=== PATIENT | female | born 2000 | race Caucasian/White ===

== ENCOUNTER 2022-07-20 19:27 | Emergency (ER) | payer OTHER ==
[~2022-07-20] VITALS: Ht 167.6 cm; Wt 57.7 kg
[2022-07-20] MEDS ORDERED: AZAT50TA37 PO (19:35)
[2022-07-20 21:04] LABS: HEMATOCRIT 37.2 % (36.0-47.0); HEMOGLOBIN 12.2 g/dl (12.0-15.5); MEAN CORPUSCULAR HEMOGLOBIN 28.5 pg (27.0-33.0); MEAN CORPUSCULAR HGB CONC 32.8 g/dl (32.0-36.5); MEAN CORPUSCULAR VOLUME 86.9 fl (80.0-96.0); PLATELET COUNT, AUTOMATED 230 10^3/uL (150-450); RED BLOOD COUNT 4.28 10^6/uL (4.00-5.40)
[2022-07-20] MEDS ORDERED: CEFDINIR 300 MG CAP (OMNICEF) PO ONE (21:30)
[2022-07-20 21:35] LABS: ALBUMIN 3.4 GM/DL (3.2-5.2); ALT/SGPT 20 U/L (12-78); BILIRUBIN,DIRECT 0.1 MG/DL (0.0-0.2); BILIRUBIN,TOTAL 0.2 MG/DL (0.2-1.0); BLOOD UREA NITROGEN 10 MG/DL (7-18); CALCIUM LEVEL 8.9 MG/DL (8.5-10.1); CARBON DIOXIDE LEVEL 28 MEQ/L (21-32); CHLORIDE LEVEL 107 MEQ/L (98-107); CREATININE FOR GFR 0.73 MG/DL (0.55-1.30); GLOMERULAR FILTRATION RATE > 60.0 (>60); GLUCOSE, FASTING 95 MG/DL (70-100); LIPASE 174 U/L (73-393); POTASSIUM SERUM 3.6 MEQ/L (3.5-5.1); SODIUM LEVEL 139 MEQ/L (136-145); TOTAL PROTEIN 7.3 GM/DL (6.4-8.2)
[2022-07-20] MEDS ORDERED: CEFD300C41 PO (22:10)
[2022-07-20 22:16] VITALS: BP 125/64
== END 2022-07-20 22:23 | disposition home or self-care (01) ==
LOC: M ED 19:27
DX: N39.0 Urinary tract infection, site not specified (principal); Z79.899 Other long term (current) drug therapy

== ENCOUNTER 2022-07-29 23:21 | Emergency (ER) | payer OTHER ==
[~2022-07-29] VITALS: Ht 167.6 cm; Wt 57.7 kg
[~2022-07-29 23:21] MED LIST: AZAT50TA37 PO; CEFD300C41 PO
[2022-07-29] MEDS ORDERED: ACET-841 PO (23:35)
[2022-07-30 00:47] LABS: BASO # 0.1 10^3/uL (0.0-0.2); BASO % 0.8 % (0.0-1.0); EOS # 0.2 10^3/uL (0.0-0.5); EOS % 2.1 % (0.0-3.0); HEMATOCRIT 35.8 % (36.0-47.0); HEMOGLOBIN 11.5 g/dl (12.0-15.5); LYMPH % 30.8 % (24.0-44.0); MEAN CORPUSCULAR HGB CONC 32.1 g/dl (32.0-36.5); MEAN CORPUSCULAR VOLUME 87.1 fl (80.0-96.0); MONO # 1.2 10^3/uL (0.0-0.8); MONO % 12.4 % (2.0-8.0); NEUTROPHILS # 5.1 10^3/uL (1.5-8.5); NEUTROPHILS % 53.5 % (36.0-66.0); PLATELET COUNT, AUTOMATED 314 10^3/uL (150-450); RED BLOOD COUNT 4.11 10^6/uL (4.00-5.40); WHITE BLOOD COUNT 9.6 10^3/uL (4.0-10.0)
[2022-07-30 02:09] LABS: HCG, SERUM QUALITATIVE NEGATIVE (NEGATIVE)
[2022-07-30 02:13] LABS: ALBUMIN 3.3 GM/DL (3.2-5.2); ALT/SGPT 24 U/L (12-78); BILIRUBIN,DIRECT < 0.1 MG/DL (0.0-0.2); BILIRUBIN,TOTAL 0.3 MG/DL (0.2-1.0); BLOOD UREA NITROGEN 6 MG/DL (7-18); CALCIUM LEVEL 8.7 MG/DL (8.5-10.1); CARBON DIOXIDE LEVEL 27 MEQ/L (21-32); CHLORIDE LEVEL 108 MEQ/L (98-107); CREATININE FOR GFR 0.62 MG/DL (0.55-1.30); GLOMERULAR FILTRATION RATE > 60.0 (>60); GLUCOSE, FASTING 91 MG/DL (70-100); LIPASE 189 U/L (73-393); POTASSIUM SERUM 4.1 MEQ/L (3.5-5.1); SODIUM LEVEL 139 MEQ/L (136-145); TOTAL PROTEIN 7.2 GM/DL (6.4-8.2)
[2022-07-30] MEDS ORDERED: BUDE3CAP PO (03:14)
[2022-07-30] MEDS ORDERED: methylPREDNISolone 125MG 2ML VIAL IV ONE (03:15)
[2022-07-30 03:29] VITALS: BP 112/66
== END 2022-07-30 03:27 | disposition home or self-care (01) ==
LOC: M ED 23:21
DX: K50.919 Crohn's disease, unspecified, with unspecified complications (principal); Z79.52 Long term (current) use of systemic steroids; Z79.82 Long term (current) use of aspirin
CPT/HCPCS: 80048; 80076; 81002; 83690; 84703; 85025; 87486; 87581; 87633; 87798; 96374; 99283; J2930

== ENCOUNTER 2022-11-11 19:20 | Emergency (ER) | payer OTHER ==
[~2022-11-11] VITALS: Ht 167.6 cm; Wt 54.1 kg
[~2022-11-11 19:20] MED LIST changes: +ACET-841 PO; +BUDE3CAP PO
[2022-11-11 23:21] VITALS: BP 102/65
== END 2022-11-11 23:46 | disposition left against medical advice (07) ==
LOC: M ED 19:20
DX: Z53.21 Procedure and treatment not carried out due to patient leaving prior to being seen by health care provider (principal)

== ENCOUNTER 2022-11-16 01:57 | Inpatient (IN) | payer OTHER ==
[~2022-11-16] VITALS: Ht 167.6 cm; Wt 54.1 kg
[2022-11-16] MEDS ORDERED: NS 1,620 ML in IV 1 EA IV ONE (02:15)
[2022-11-16] MEDS ORDERED: ACETAMINOPHEN 650MG SUPP PR ONE (02:20)
[2022-11-16] MEDS ORDERED: ONDANSETRON 4MG 2ML VIAL IV ONE (02:50)
[2022-11-16 03:16] LABS: BASO % 0.2 % (0.0-1.0); EOS % 0.1 % (0.0-3.0); HEMATOCRIT 36.5 % (36.0-47.0); HEMOGLOBIN 11.8 g/dl (12.0-15.5); LYMPH # 1.3 10^3/uL (1.5-5.0); MEAN CORPUSCULAR HEMOGLOBIN 27.4 pg (27.0-33.0); MEAN CORPUSCULAR HGB CONC 32.3 g/dl (32.0-36.5); MEAN CORPUSCULAR VOLUME 84.9 fl (80.0-96.0); MONO % 12.8 % (2.0-8.0); NEUTROPHILS # 12.6 10^3/uL (1.5-8.5); NEUTROPHILS % 78.3 % (36.0-66.0); PLATELET COUNT, AUTOMATED 184 10^3/uL (150-450); WHITE BLOOD COUNT 16.1 10^3/uL (4.0-10.0)
[2022-11-16 03:18] LABS: LIPASE 37 U/L (12-53)
[2022-11-16 03:20] LABS: ALBUMIN 3.1 G/DL (3.2-5.2); ALKALINE PHOSPHATASE 86 U/L (46-116); ALT/SGPT 16 U/L (7.0-40); AST/SGOT 22 U/L (<34); BILIRUBIN,TOTAL 0.5 MG/DL (0.3-1.2); BLOOD UREA NITROGEN 7 MG/DL (9-23); CALCIUM LEVEL 7.7 MG/DL (8.5-10.1); CARBON DIOXIDE LEVEL 24 MMOL/L (20-31); CHLORIDE LEVEL 105 MMOL/L (98-107); CK-MB VALUE MASS < 1.0 NG/ML (<3.6); GLOMERULAR FILTRATION RATE > 60.0 (>60); GLUCOSE, FASTING 96 MG/DL (60-100); MAGNESIUM LEVEL 1.7 MG/DL (1.8-2.4); POTASSIUM SERUM 3.2 MMOL/L (3.5-5.1); SODIUM LEVEL 138 MMOL/L (136-145); TOTAL PROTEIN 6.6 G/DL (5.7-8.2)
[2022-11-16 03:22] LABS: THYROID STIMULATING HORMONE 1.356 uIU/ML (0.55-4.78)
[2022-11-16 03:39] LABS: CPK CREATINE PHOSPHOKINASE 32 U/L (34-145); MB/CK RELATIVE INDEX 3.12 (< OR =4)
[2022-11-16 03:40] LABS: MONO # 2.1 10^3/uL (0.0-0.8)
[2022-11-16 03:45] LABS: HCG, SERUM QUALITATIVE NEGATIVE (NEGATIVE)
[2022-11-16] MEDS ORDERED: METOCLOPRAMIDE INJ 10MG/2ML VIAL IV ONE (04:40)
[2022-11-16] MEDS ORDERED: POTASSIUM CHLORIDE 10MEQ SR TABLET PO ONE (04:45)
[2022-11-16] MEDS ORDERED: MAG SULF 1GM/100ML (MAG RUN) 1 GM in IV 1 EA IV ONE ×2 (04:45→06:00)
[2022-11-16] MEDS ORDERED: NS 1,000 ML IV SCH (04:55)
[2022-11-16] MEDS: ACETAMINOPHEN TAB 650MG DOSE (2X325MG) PO PRN ×3 (05:50→19:28)
[2022-11-16] MEDS ORDERED: BUDE3CAP PO (05:51)
[2022-11-16] MEDS ORDERED: CLAR10TA7 PO (05:53)
[2022-11-16] MEDS ORDERED: HOME MED LIST COMPLETE! XX SCH (05:55)
[2022-11-16 06:02] LABS: AMPHETAMINES LEVEL URINE NEGATIVE (NEGATIVE); APPEARANCE, URINE MANUAL CLEAR (CLEAR); BARBITURATES URINE NEGATIVE (NEGATIVE); BENZODIAZEPINES URINE NEGATIVE (NEGATIVE); CANNABINOIDS URINE NEGATIVE (NEGATIVE); COCAINE METABOLITE URINE NEGATIVE (NEGATIVE); COLOR, URINE MANUAL YELLOW (YELLOW); METHADONE URINE NEGATIVE (NEGATIVE); OPIATES URINE NEGATIVE (NEGATIVE); PHENCYCLIDINE URINE NEGATIVE (NEGATIVE)
[2022-11-16 06:04] LABS: BILIRUBIN, URINE MANUAL NEGATIVE (NEGATIVE); BLOOD URINE MANUAL NEGATIVE (NEGATIVE); GLUCOSE, URINE (UA) MANUAL NEGATIVE (NEGATIVE); KETONE, URINE MANUAL 1+ mg/dL (NEGATIVE); LEUKOCYTE ESTERASE, URINE MAN NEGATIVE (NEGATIVE); NITRITE, URINE MANUAL NEGATIVE (NEGATIVE); PROTEIN, URINE MANUAL NEGATIVE (NEGATIVE); UROBILINOGEN, URINE MANUAL NORMAL (NORMAL)
[2022-11-16] MEDS ORDERED: ONDANSETRON 4MG 2ML VIAL IV PRN (06:05)
[2022-11-16] MEDS ORDERED: KETOROLAC 30 MG/ML 1ML VIAL IV ONE (07:00)
[2022-11-16] MEDS: cefTRIAXone SOD 1 GM in D5W MINI-BAG PLUS 50 ML IV SCH (07:35)
[2022-11-16 09:15] VITALS: BP 94/54
[2022-11-16 14:00] VITALS: BP 89/58
[2022-11-16 16:04] VITALS: BP 92/54
[2022-11-16 20:03] VITALS: BP 98/59
[2022-11-16] MEDS ORDERED: NS 1,000 ML IV ONE (20:15)
[2022-11-16] MEDS ORDERED: CEPACOL LOZENGE PO PRN (20:15)
[2022-11-16] MEDS ORDERED: KETOROLAC 30 MG/ML 1ML VIAL IV PRN (21:15)
[2022-11-16 21:33] VITALS: BP 97/63
[2022-11-16] MEDS: guaiFENesin SYRUP 200MG 10ML UDC PO PRN (21:46)
[2022-11-16] MEDS: FLUTICASONE PROP 0.05% NASAL SPRAY 16 GM (FLONASE) NARES SCH (22:09)
[2022-11-17] MEDS: cefTRIAXone SOD 1 GM in D5W MINI-BAG PLUS 50 ML IV SCH (05:02)
[2022-11-17 06:12] VITALS: BP 97/56
[2022-11-17 06:22] VITALS: BP_SYST 93; BP_SYST 96; BP_SYST 97; BP_DIAS 56; BP_DIAS 62
[2022-11-17] MEDS ORDERED: SODIUM CHLORIDE 0.9% 1000ML IV ONE (06:35)
[2022-11-17] MEDS ORDERED: MECLIZINE 12.5 MG TAB PO ONE (07:00)
[2022-11-17 07:06] LABS: HEMATOCRIT 35.9 % (36.0-47.0); HEMOGLOBIN 11.3 g/dl (12.0-15.5); MEAN CORPUSCULAR HEMOGLOBIN 27.8 pg (27.0-33.0); MEAN CORPUSCULAR HGB CONC 31.5 g/dl (32.0-36.5); MEAN CORPUSCULAR VOLUME 88.2 fl (80.0-96.0); PLATELET COUNT, AUTOMATED 188 10^3/uL (150-450); RED BLOOD COUNT 4.07 10^6/uL (4.00-5.40)
[2022-11-17 07:48] LABS: ALBUMIN 2.6 G/DL (3.2-5.2); ALKALINE PHOSPHATASE 94 U/L (46-116); ALT/SGPT 32 U/L (7.0-40); AST/SGOT 24 U/L (<34); BILIRUBIN,TOTAL 0.3 MG/DL (0.3-1.2); BLOOD UREA NITROGEN < 5 MG/DL (9-23); CALCIUM LEVEL 7.7 MG/DL (8.5-10.1); CARBON DIOXIDE LEVEL 23 MMOL/L (20-31); CHLORIDE LEVEL 107 MMOL/L (98-107); CREATININE FOR GFR 0.53 MG/DL (0.55-1.30); GLOMERULAR FILTRATION RATE > 60.0 (>60); GLUCOSE, FASTING 82 MG/DL (60-100); SODIUM LEVEL 138 MMOL/L (136-145); TOTAL PROTEIN 5.8 G/DL (5.7-8.2)
[2022-11-17] MEDS: LORATADINE 10 MG TAB PO SCH (09:18)
[2022-11-17] MEDS: GASTROGRAFIN SOLUTION 30ML PO SCH ×2 (09:18→09:30)
[2022-11-17] MEDS: FLUTICASONE PROP 0.05% NASAL SPRAY 16 GM (FLONASE) NARES SCH ×2 (09:19→20:16)
[2022-11-17] MEDS ORDERED: ISOVUE-370 76% 100ML VIAL As Ordered ONE (10:05)
[2022-11-17 14:00] VITALS: BP 101/67
[2022-11-17] MEDS: FIDAXOMICIN 200 MG TAB (DIFICID) PO SCH ×2 (14:13→20:15)
[2022-11-17] MEDS: guaiFENesin SYRUP 200MG 10ML UDC PO PRN (20:22)
[2022-11-17 22:00] VITALS: BP 117/60
[2022-11-18 05:22] VITALS: BP_SYST 102; BP_SYST 97; BP_DIAS 54; BP_DIAS 63; BP_DIAS 68
[2022-11-18 05:30] VITALS: BP 97/54
[2022-11-18 08:08] LABS: BASO % 0.4 % (0.0-1.0); EOS # 0.3 10^3/uL (0.0-0.5); EOS % 3.2 % (0.0-3.0); HEMATOCRIT 37.3 % (36.0-47.0); HEMOGLOBIN 11.8 g/dl (12.0-15.5); LYMPH # 2.1 10^3/uL (1.5-5.0); LYMPH % 22.2 % (24.0-44.0); MEAN CORPUSCULAR HEMOGLOBIN 27.3 pg (27.0-33.0); MEAN CORPUSCULAR HGB CONC 31.6 g/dl (32.0-36.5); MEAN CORPUSCULAR VOLUME 86.3 fl (80.0-96.0); MONO % 10.4 % (2.0-8.0); NEUTROPHILS # 6.1 10^3/uL (1.5-8.5); NEUTROPHILS % 62.9 % (36.0-66.0); PLATELET COUNT, AUTOMATED 215 10^3/uL (150-450); RED BLOOD COUNT 4.32 10^6/uL (4.00-5.40); WHITE BLOOD COUNT 9.7 10^3/uL (4.0-10.0)
[2022-11-18 08:30] LABS: BLOOD UREA NITROGEN < 5 MG/DL (9-23); CALCIUM LEVEL 8.6 MG/DL (8.5-10.1); CARBON DIOXIDE LEVEL 24 MMOL/L (20-31); CHLORIDE LEVEL 108 MMOL/L (98-107); CREATININE FOR GFR 0.49 MG/DL (0.55-1.30); GLOMERULAR FILTRATION RATE > 60.0 (>60); GLUCOSE, FASTING 86 MG/DL (60-100); SODIUM LEVEL 140 MMOL/L (136-145)
[2022-11-18] MEDS: FIDAXOMICIN 200 MG TAB (DIFICID) PO SCH (08:33)
[2022-11-18] MEDS: FLUTICASONE PROP 0.05% NASAL SPRAY 16 GM (FLONASE) NARES SCH (08:33)
[2022-11-18] MEDS: LORATADINE 10 MG TAB PO SCH (08:33)
[2022-11-18] MEDS ORDERED: FIDA200TA PO (09:04)
[2022-11-18] MEDS ORDERED: FLUTISP NARES (09:04)
== END 2022-11-18 11:19 | disposition home or self-care (01) | DRG 872 ==
LOC: M ED 01:57 → M ED INP 04:51 → ENRESERV 08:01 → M MSPAV 09:05
PROVIDERS: ADMIT Family Medicine; ATTEND Internal Medicine Nephrology
PROC: B246ZZZ Ultrasonography of Right and Left Heart (ICD-10-PCS; principal; 2022-11-16)
DX: A41.9 Sepsis, unspecified organism (principal); K50.90 Crohn's disease, unspecified, without complications; A04.72 Enterocolitis due to Clostridium difficile, not specified as recurrent; B97.29 Other coronavirus as the cause of diseases classified elsewhere; G43.909 Migraine, unspecified, not intractable, without status migrainosus; D64.9 Anemia, unspecified; E87.6 Hypokalemia; E83.42 Hypomagnesemia; Z79.899 Other long term (current) drug therapy; Z90.49 Acquired absence of other specified parts of digestive tract; E86.0 Dehydration; R55 Syncope and collapse; J06.9 Acute upper respiratory infection, unspecified; M54.2 Cervicalgia; S09.90XA Unspecified injury of head, initial encounter; W01.0XXA Fall on same level from slipping, tripping and stumbling without subsequent striking against object, initial encounter; Y92.009 Unspecified place in unspecified non-institutional (private) residence as the place of occurrence of the external cause

== ENCOUNTER 2022-11-20 00:52 | Emergency (ER) | payer OTHER ==
[~2022-11-20] VITALS: Ht 167.6 cm; Wt 54.7 kg
[~2022-11-20 00:52] MED LIST changes: +CLAR10TA7 PO; +FIDA200TA PO; +FLUTISP NARES
[2022-11-20 00:58] VITALS: BP 97/64
== END 2022-11-20 03:48 | disposition left against medical advice (07) ==
LOC: M ED 00:52
DX: Z53.21 Procedure and treatment not carried out due to patient leaving prior to being seen by health care provider (principal)

== ENCOUNTER 2022-12-31 13:07 | Emergency (ER) | payer OTHER ==
[~2022-12-31] VITALS: Ht 167.6 cm; Wt 55.1 kg
[2022-12-31 14:44] LABS: BASO % 0.4 % (0.0-1.0); EOS # 0.1 10^3/uL (0.0-0.5); EOS % 1.6 % (0.0-3.0); HEMATOCRIT 34.6 % (36.0-47.0); LYMPH # 2.1 10^3/uL (1.5-5.0); LYMPH % 28.8 % (24.0-44.0); MEAN CORPUSCULAR HGB CONC 31.8 g/dl (32.0-36.5); MEAN CORPUSCULAR VOLUME 84.8 fl (80.0-96.0); MONO # 0.8 10^3/uL (0.0-0.8); MONO % 10.8 % (2.0-8.0); NEUTROPHILS # 4.3 10^3/uL (1.5-8.5); NEUTROPHILS % 58.1 % (36.0-66.0); PLATELET COUNT, AUTOMATED 238 10^3/uL (150-450); RED BLOOD COUNT 4.08 10^6/uL (4.00-5.40); WHITE BLOOD COUNT 7.4 10^3/uL (4.0-10.0)
[2022-12-31 14:59] LABS: LIPASE 45 U/L (12-53)
[2022-12-31 15:05] LABS: ALKALINE PHOSPHATASE 75 U/L (46-116); ALT/SGPT 25 U/L (7.0-40); AST/SGOT 26 U/L (<34); BILIRUBIN,TOTAL 0.2 MG/DL (0.3-1.2); BLOOD UREA NITROGEN 9 MG/DL (9-23); CALCIUM LEVEL 8.2 MG/DL (8.5-10.1); CARBON DIOXIDE LEVEL 27 MMOL/L (20-31); CHLORIDE LEVEL 105 MMOL/L (98-107); CREATININE FOR GFR 0.54 MG/DL (0.55-1.30); GLOMERULAR FILTRATION RATE > 60.0 (>60); GLUCOSE, FASTING 93 MG/DL (60-100); POTASSIUM SERUM 3.8 MMOL/L (3.5-5.1); SODIUM LEVEL 137 MMOL/L (136-145); TOTAL PROTEIN 6.5 G/DL (5.7-8.2)
[2022-12-31 15:09] LABS: HCG, SERUM QUALITATIVE NEGATIVE (NEGATIVE)
[2022-12-31 15:57] VITALS: BP 106/67
== END 2022-12-31 15:59 | disposition home or self-care (01) ==
LOC: M ED 13:07
DX: J06.9 Acute upper respiratory infection, unspecified (principal); G43.909 Migraine, unspecified, not intractable, without status migrainosus; K50.90 Crohn's disease, unspecified, without complications; Z79.899 Other long term (current) drug therapy

== ENCOUNTER 2023-06-06 10:42 | Day surgery (SDC) | payer OTHER ==
[~2023-06-06] VITALS: Ht 167.6 cm; Wt 54.0 kg
[~2023-06-06 10:42] MED LIST changes: +CETI-24 PO; +FLUT50SP17 NARES; -FLUTISP NARES; +HUMI40IN2 SC; +NS 1,000 ML IV ONE; +fentaNYL 100 MCG/2 ML INJECTION As Ordered ONE; +propofoL 200 MG/20 ML VIAL As Ordered ONE
[2023-06-06] MEDS ORDERED: propofoL 200 MG/20 ML VIAL As Ordered ONE (14:02)
[2023-06-06 14:55] VITALS: BP 102/58; TEMP 97.1; O2SAT 100
== END 2023-06-06 15:41 | disposition home or self-care (01) ==
LOC: M SDC 10:42
PROVIDERS: ATTEND Internal Medicine Gastroenterology
DX: K63.5 Polyp of colon (principal); K63.89 Other specified diseases of intestine; K64.4 Residual hemorrhoidal skin tags; K64.8 Other hemorrhoids; K50.812 Crohn's disease of both small and large intestine with intestinal obstruction; K50.813 Crohn's disease of both small and large intestine with fistula; K50.90 Crohn's disease, unspecified, without complications; K29.70 Gastritis, unspecified, without bleeding; Z79.3 Long term (current) use of hormonal contraceptives; Z79.52 Long term (current) use of systemic steroids
CPT/HCPCS: 43239; 45380; 88305; J3010

== ENCOUNTER 2023-09-19 11:07 | Emergency (ER) | payer OTHER ==
[~2023-09-19] VITALS: Ht 167.6 cm; Wt 56.4 kg
[~2023-09-19 11:07] MED LIST changes: +CEFD1CAP9 PO; -CEFD300C41 PO; -FLUT50SP17 NARES; +FLUTISP NARES; -NS 1,000 ML IV ONE; -fentaNYL 100 MCG/2 ML INJECTION As Ordered ONE; -propofoL 200 MG/20 ML VIAL As Ordered ONE
[2023-09-19] MEDS ORDERED: KETOROLAC 30 MG/ML 1ML VIAL IV ONE (13:20)
[2023-09-19] MEDS ORDERED: NS 1,000 ML IV ONE (13:20)
[2023-09-19] MEDS ORDERED: ONDANSETRON 4MG 2ML VIAL IV ONE (13:20)
[2023-09-19 13:26] LABS: BASO # 0.1 10^3/uL (0.0-0.2); BASO % 0.7 % (0.0-1.0); EOS # 0.1 10^3/uL (0.0-0.5); EOS % 1.5 % (0.0-3.0); HEMATOCRIT 38.9 % (36.0-47.0); LYMPH # 2.4 10^3/uL (1.5-5.0); LYMPH % 29.6 % (24.0-44.0); MEAN CORPUSCULAR HEMOGLOBIN 25.5 pg (27.0-33.0); MEAN CORPUSCULAR HGB CONC 30.8 g/dl (32.0-36.5); MEAN CORPUSCULAR VOLUME 82.8 fl (80.0-96.0); MONO # 0.9 10^3/uL (0.0-0.8); MONO % 10.9 % (2.0-8.0); NEUTROPHILS # 4.6 10^3/uL (1.5-8.5); NEUTROPHILS % 56.9 % (36.0-66.0); PLATELET COUNT, AUTOMATED 311 10^3/uL (150-450); WHITE BLOOD COUNT 8.1 10^3/uL (4.0-10.0)
[2023-09-19 13:43] LABS: LIPASE 68 U/L (12-53)
[2023-09-19 13:45] LABS: ALBUMIN 3.3 G/DL (3.2-5.2); ALKALINE PHOSPHATASE 76 U/L (46-116); ALT/SGPT 26 U/L (7.0-40); AST/SGOT 22 U/L (<34); BILIRUBIN,DIRECT 0.1 MG/DL (<0.4); BILIRUBIN,TOTAL 0.3 MG/DL (0.3-1.2); BLOOD UREA NITROGEN 7 MG/DL (9-23); CALCIUM LEVEL 8.8 MG/DL (8.5-10.1); CARBON DIOXIDE LEVEL 28 MMOL/L (20-31); CHLORIDE LEVEL 106 MMOL/L (98-107); CREATININE FOR GFR 0.65 MG/DL (0.55-1.30); GLOMERULAR FILTRATION RATE > 60.0 (>60); GLUCOSE, FASTING 92 MG/DL (60-100); POTASSIUM SERUM 3.9 MMOL/L (3.5-5.1); SODIUM LEVEL 141 MMOL/L (136-145); TOTAL PROTEIN 7.3 G/DL (5.7-8.2)
[2023-09-19 13:52] LABS: HCG, SERUM QUALITATIVE NEGATIVE (NEGATIVE)
[2023-09-19] MEDS ORDERED: ISOVUE-370 76% 100ML VIAL As Ordered ONE (14:09)
[2023-09-19] MEDS ORDERED: PRED10TA2 PO (16:07)
[2023-09-19 16:27] VITALS: BP 108/60; TEMP 98.1; O2SAT 97
== END 2023-09-19 16:30 | disposition home or self-care (01) ==
LOC: M ED 11:07
DX: K50.90 Crohn's disease, unspecified, without complications (principal); G43.909 Migraine, unspecified, not intractable, without status migrainosus; Z90.49 Acquired absence of other specified parts of digestive tract; Z79.899 Other long term (current) drug therapy
CPT/HCPCS: 74177; 80048; 80076; 81001; 83690; 84703; 85025; 96361; 96374; 96375; 99284; J1885; J2405; Q9967

== ENCOUNTER 2023-09-23 21:30 | Inpatient (IN) | payer OTHER ==
[~2023-09-23] VITALS: Ht 167.6 cm; Wt 58.0 kg
[~2023-09-23 21:30] MED LIST changes: +PRED10TA2 PO
[2023-09-23 22:40] LABS: BASO % 0.1 % (0.0-1.0); HEMATOCRIT 34.5 % (36.0-47.0); HEMOGLOBIN 10.9 g/dl (12.0-15.5); LYMPH # 1.7 10^3/uL (1.5-5.0); LYMPH % 11.7 % (24.0-44.0); MEAN CORPUSCULAR HEMOGLOBIN 25.7 pg (27.0-33.0); MEAN CORPUSCULAR HGB CONC 31.6 g/dl (32.0-36.5); MEAN CORPUSCULAR VOLUME 81.4 fl (80.0-96.0); MONO # 1.4 10^3/uL (0.0-0.8); MONO % 9.3 % (2.0-8.0); NEUTROPHILS # 11.6 10^3/uL (1.5-8.5); NEUTROPHILS % 78.4 % (36.0-66.0); PLATELET COUNT, AUTOMATED 308 10^3/uL (150-450); RED BLOOD COUNT 4.24 10^6/uL (4.00-5.40); WHITE BLOOD COUNT 14.9 10^3/uL (4.0-10.0)
[2023-09-23 23:10] LABS: LIPASE 42 U/L (12-53)
[2023-09-23 23:12] LABS: ALBUMIN 3.5 G/DL (3.2-5.2); ALKALINE PHOSPHATASE 78 U/L (46-116); ALT/SGPT 22 U/L (7.0-40); AST/SGOT 11 U/L (<34); BILIRUBIN,DIRECT < 0.1 MG/DL (<0.4); BILIRUBIN,TOTAL 0.2 MG/DL (0.3-1.2); BLOOD UREA NITROGEN 8 MG/DL (9-23); CALCIUM LEVEL 9.4 MG/DL (8.5-10.1); CARBON DIOXIDE LEVEL 27 MMOL/L (20-31); CHLORIDE LEVEL 107 MMOL/L (98-107); CREATININE FOR GFR 0.74 MG/DL (0.55-1.30); GLOMERULAR FILTRATION RATE > 60.0 (>60); GLUCOSE, FASTING 141 MG/DL (60-100); POTASSIUM SERUM 4.2 MMOL/L (3.5-5.1); SODIUM LEVEL 141 MMOL/L (136-145); TOTAL PROTEIN 7.8 G/DL (5.7-8.2)
[2023-09-24] MEDS ORDERED: MEDR4TAB PO ×2 (00:39→01:32)
[2023-09-24] MEDS ORDERED: METR-265 PO ×2 (00:39→01:32)
[2023-09-24] MEDS ORDERED: PROTPAK PO (00:39)
[2023-09-24] MEDS ORDERED: methylPREDNISolone 125MG 2ML VIAL IV ONE (01:15)
[2023-09-24] MEDS ORDERED: NS 1,000 ML IV ONE (01:15)
[2023-09-24] MEDS ORDERED: PROMETHAZINE 25MG/ML 1ML VIAL IV ONE (01:15)
[2023-09-24] MEDS ORDERED: PANT40TA29 PO (01:32)
[2023-09-24] MEDS ORDERED: PRED10TA2 PO (01:32)
[2023-09-24] MEDS ORDERED: ACET-897 PO (01:32)
[2023-09-24] MEDS ORDERED: HOME MED LIST COMPLETE! XX SCH (01:35)
[2023-09-24 02:55] LABS: RSV AMPLIFICATION NEGATIVE (NEGATIVE)
[2023-09-24 03:17] LABS: PROCALCITONIN <0.04 ng/ml
[2023-09-24] MEDS: NS 1,000 ML IV SCH ×3 (03:55→22:27)
[2023-09-24] MEDS: HYDROMORPHONE HCL 0.5 MG/ 0.5 ML SYRINGE IV PRN ×2 (03:56→08:13)
[2023-09-24] MEDS ORDERED: CIPROFLOXACIN 400 MG in IV 1 EA IV SCH (04:00)
[2023-09-24 04:57] LABS: ERYTHROCYTE SEDIMENTATION RATE 24 mm/hr (0-20)
[2023-09-24] MEDS ORDERED: metroNIDAZOLE 500 MG in IV 1 EA IV SCH (05:00)
[2023-09-24] MEDS: HEPARIN SOD (PORCINE) 5000UNITS/ML 1ML VIAL/SYRINGE SC SCH ×3 (05:14→22:26)
[2023-09-24 07:39] LABS: HEMATOCRIT 31.4 % (36.0-47.0); MEAN CORPUSCULAR HEMOGLOBIN 26.3 pg (27.0-33.0); MEAN CORPUSCULAR HGB CONC 31.8 g/dl (32.0-36.5); MEAN CORPUSCULAR VOLUME 82.6 fl (80.0-96.0); PLATELET COUNT, AUTOMATED 239 10^3/uL (150-450); WHITE BLOOD COUNT 12.6 10^3/uL (4.0-10.0)
[2023-09-24] MEDS ORDERED: ONDANSETRON 4MG 2ML VIAL IV PRN (07:45)
[2023-09-24] MEDS ORDERED: KETOROLAC 30 MG/ML 1ML VIAL IV PRN (07:45)
[2023-09-24] MEDS ORDERED: VANCOMYCIN ORAL SOL 250MG/5ML ORAL SYRINGE PO SCH (09:00)
[2023-09-24] MEDS: methylPREDNISolone 125MG 2ML VIAL IV SCH (09:00)
[2023-09-24] MEDS ORDERED: PANTOPRAZOLE 40MG TAB (PROTONIX) PO SCH (09:00)
[2023-09-24] MEDS: LACTOBACILLUS ACIDOPHILUS CAP (BACID) PO SCH ×3 (12:27→22:27)
[2023-09-24] MEDS ORDERED: PERCOCET 5MG/325MG TAB PO PRN (14:05)
[2023-09-25] MEDS: HEPARIN SOD (PORCINE) 5000UNITS/ML 1ML VIAL/SYRINGE SC SCH (06:11)
[2023-09-25 06:56] LABS: HEMATOCRIT 30.7 % (36.0-47.0); HEMOGLOBIN 9.4 g/dl (12.0-15.5); MEAN CORPUSCULAR HEMOGLOBIN 25.7 pg (27.0-33.0); MEAN CORPUSCULAR HGB CONC 30.6 g/dl (32.0-36.5); MEAN CORPUSCULAR VOLUME 83.9 fl (80.0-96.0); PLATELET COUNT, AUTOMATED 203 10^3/uL (150-450); RED BLOOD COUNT 3.66 10^6/uL (4.00-5.40); WHITE BLOOD COUNT 10.3 10^3/uL (4.0-10.0)
[2023-09-25 07:27] LABS: BLOOD UREA NITROGEN 11 MG/DL (9-23); CALCIUM LEVEL 7.8 MG/DL (8.5-10.1); CARBON DIOXIDE LEVEL 28 MMOL/L (20-31); CHLORIDE LEVEL 109 MMOL/L (98-107); CREATININE FOR GFR 0.62 MG/DL (0.55-1.30); GLOMERULAR FILTRATION RATE > 60.0 (>60); GLUCOSE, FASTING 91 MG/DL (60-100); POTASSIUM SERUM 3.5 MMOL/L (3.5-5.1); SODIUM LEVEL 142 MMOL/L (136-145)
[2023-09-25] MEDS: methylPREDNISolone 125MG 2ML VIAL IV SCH (08:34)
[2023-09-25] MEDS: LACTOBACILLUS ACIDOPHILUS CAP (BACID) PO SCH ×2 (08:35→13:54)
[2023-09-25] MEDS ORDERED: BUDESONIDE EC 3MG CAP (ENTOCORT EC) PO SCH (09:00)
[2023-09-25] MEDS ORDERED: PANTOPRAZOLE 40MG VIAL IV SCH (09:00)
[2023-09-25] MEDS ORDERED: methylPREDNISolone 40MG 1ML VIAL IV SCH ×2 (09:00→21:00)
[2023-09-25] MEDS: NS 1,000 ML IV SCH (09:28)
[2023-09-25] MEDS ORDERED: RISATAB3 PO ×2 (11:47→12:54)
[2023-09-25] MEDS ORDERED: OXYC1TAB23 PO (12:53)
[2023-09-25] MEDS ORDERED: PRED10TA2 PO (12:53)
[2023-09-25] MEDS ORDERED: PANT40TA29 PO (12:53)
[2023-09-25 13:51] VITALS: BP 121/60; TEMP 98.3; O2SAT 98
[2023-09-26] MEDS ORDERED: methylPREDNISolone 125MG 2ML VIAL IV SCH (09:00)
== END 2023-09-25 14:00 | disposition home or self-care (01) | DRG 387 ==
LOC: M ED 21:30 → M ED INP 09-24 02:57 → ENRESERV 09-24 19:52
PROVIDERS: ADMIT Internal Medicine; ATTEND Internal Medicine
DX: K50.90 Crohn's disease, unspecified, without complications (principal); K21.9 Gastro-esophageal reflux disease without esophagitis; D64.9 Anemia, unspecified; I95.9 Hypotension, unspecified; D72.829 Elevated white blood cell count, unspecified; Z90.49 Acquired absence of other specified parts of digestive tract; Z79.899 Other long term (current) drug therapy; Z20.822 Contact with and (suspected) exposure to COVID-19

== ENCOUNTER → 2023-10-24 | Outpatient (CLI) | payer OTHER ==
[~2023-10-24] VITALS: Ht 167.6 cm; Wt 54.5 kg
[~2023-10-24] MED LIST changes: +ACET-897 PO; +AZAT100T PO; +MEDR4TAB PO; +METR-265 PO; +MUCI30TA5 PO; +OXYC1TAB23 PO; +PANT40TA29 PO; +PROTPAK PO; +RISATAB3 PO; +VEDOLIZUMAB 300 MG in NS 250 ML IV ONE
[2023-10-24 15:50] VITALS: BP 127/64; O2SAT 99
[2023-10-24 16:47] VITALS: BP 127/64; TEMP 36.7; O2SAT 99
[2023-10-24 17:28] VITALS: BP 113/60; O2SAT 100
== END ==
LOC: M INFU 15:36
PROVIDERS: ATTEND Internal Medicine Gastroenterology
DX: K50.90 Crohn's disease, unspecified, without complications (principal); Z91.011 Allergy to milk products
CPT/HCPCS: 96365; J3380

== ENCOUNTER → 2023-10-30 | Outpatient (CLI) | payer OTHER ==
[~2023-10-30] MED LIST changes: -VEDOLIZUMAB 300 MG in NS 250 ML IV ONE
[2023-10-30 08:47] LABS: BASO % 0.4 % (0.0-1.0); EOS # 0.1 10^3/uL (0.0-0.5); EOS % 0.6 % (0.0-3.0); HEMATOCRIT 35.3 % (36.0-47.0); LYMPH # 3.9 10^3/uL (1.5-5.0); LYMPH % 35.5 % (24.0-44.0); MEAN CORPUSCULAR HEMOGLOBIN 25.8 pg (27.0-33.0); MEAN CORPUSCULAR HGB CONC 31.2 g/dl (32.0-36.5); MEAN CORPUSCULAR VOLUME 82.9 fl (80.0-96.0); MONO # 1.4 10^3/uL (0.0-0.8); MONO % 12.3 % (2.0-8.0); NEUTROPHILS # 5.6 10^3/uL (1.5-8.5); NEUTROPHILS % 50.5 % (36.0-66.0); PLATELET COUNT, AUTOMATED 274 10^3/uL (150-450); RED BLOOD COUNT 4.26 10^6/uL (4.00-5.40); WHITE BLOOD COUNT 11.1 10^3/uL (4.0-10.0)
[2023-10-30 09:13] LABS: ERYTHROCYTE SEDIMENTATION RATE 15 mm/hr (0-20)
[2023-10-30 09:23] LABS: ALBUMIN 3.1 G/DL (3.2-5.2); ALKALINE PHOSPHATASE 65 U/L (46-116); ALT/SGPT 17 U/L (7.0-40); AST/SGOT 11 U/L (<34); BILIRUBIN,DIRECT < 0.1 MG/DL (<0.4); BILIRUBIN,TOTAL 0.2 MG/DL (0.3-1.2); BLOOD UREA NITROGEN 10 MG/DL (9-23); CREATININE FOR GFR 0.62 MG/DL (0.55-1.30); GLOMERULAR FILTRATION RATE > 60.0 (>60); TOTAL PROTEIN 6.2 G/DL (5.7-8.2)
== END ==
LOC: M LAB 08:27
PROVIDERS: ATTEND Internal Medicine Gastroenterology
DX: K50.80 Crohn's disease of both small and large intestine without complications (principal)

== ENCOUNTER → 2023-11-29 | Outpatient (CLI) | payer OTHER ==
[2023-11-29 10:57] LABS: BASO % 0.5 % (0.0-1.0); EOS # 0.1 10^3/uL (0.0-0.5); EOS % 1.2 % (0.0-3.0); HEMATOCRIT 37.1 % (36.0-47.0); HEMOGLOBIN 11.5 g/dl (12.0-15.5); LYMPH # 2.9 10^3/uL (1.5-5.0); LYMPH % 38.3 % (24.0-44.0); MEAN CORPUSCULAR HEMOGLOBIN 25.3 pg (27.0-33.0); MEAN CORPUSCULAR VOLUME 81.5 fl (80.0-96.0); MONO # 0.7 10^3/uL (0.0-0.8); MONO % 9.5 % (2.0-8.0); NEUTROPHILS # 3.8 10^3/uL (1.5-8.5); PLATELET COUNT, AUTOMATED 339 10^3/uL (150-450); RED BLOOD COUNT 4.55 10^6/uL (4.00-5.40); WHITE BLOOD COUNT 7.7 10^3/uL (4.0-10.0)
[2023-11-29 11:04] LABS: ERYTHROCYTE SEDIMENTATION RATE 18 mm/hr (0-20)
[2023-11-29 11:21] LABS: C REACTIVE PROTEIN QUANTITATIV < 0.40 MG/DL (<1.0)
[2023-11-29 11:22] LABS: ALBUMIN 3.3 G/DL (3.2-5.2); ALKALINE PHOSPHATASE 88 U/L (46-116); ALT/SGPT 34 U/L (7.0-40); AST/SGOT 11 U/L (<34); BILIRUBIN,DIRECT 0.1 MG/DL (<0.4); BILIRUBIN,TOTAL 0.3 MG/DL (0.3-1.2); BLOOD UREA NITROGEN 7 MG/DL (9-23); CREATININE FOR GFR 0.67 MG/DL (0.55-1.30); GLOMERULAR FILTRATION RATE > 60.0 (>60); IRON (FE) 22 UG/DL (50-170); TOTAL IRON BINDING CAPACITY 364 UG/DL (250-425); TOTAL PROTEIN 6.7 G/DL (5.7-8.2)
[2023-11-29 11:25] LABS: FERRITIN 2.4 NG/ML (7.3-270.7)
== END ==
LOC: M LAB 10:02
PROVIDERS: ATTEND Internal Medicine Gastroenterology
DX: K50.80 Crohn's disease of both small and large intestine without complications (principal); R10.13 Epigastric pain

== ENCOUNTER 2023-12-05 15:30 | Outpatient (CLI) | payer OTHER ==
[~2023-12-05] VITALS: Ht 167.6 cm; Wt 57.0 kg
[2023-12-05] MEDS: VEDOLIZUMAB 300 MG in NS 250 ML IV ONE (15:58)
[2023-12-05 16:40] VITALS: BP 123/84; O2SAT 100
== END 2023-12-05 16:40 | disposition home or self-care (01) ==
LOC: M INFU 15:30
PROVIDERS: ATTEND Internal Medicine Gastroenterology
DX: K50.90 Crohn's disease, unspecified, without complications (principal); Z91.040 Latex allergy status
CPT/HCPCS: 96365; J3380

== ENCOUNTER 2024-01-02 16:10 | Outpatient (CLI) | payer OTHER ==
[~2024-01-02] VITALS: Ht 167.6 cm; Wt 57.0 kg
[2024-01-02 16:10] VITALS: BP 118/62; O2SAT 99
[2024-01-02] MEDS: VEDOLIZUMAB 300 MG in NS 250 ML IV ONE (16:32)
[2024-01-02 17:15] VITALS: BP 117/63; O2SAT 100
== END 2024-01-02 17:15 ==
LOC: M INFU 16:10
PROVIDERS: ATTEND Internal Medicine Gastroenterology
DX: K50.919 Crohn's disease, unspecified, with unspecified complications (principal)
CPT/HCPCS: 96365; J3380

== ENCOUNTER 2024-01-16 18:02 | Emergency (ER) | payer OTHER ==
[~2024-01-16] VITALS: Ht 167.6 cm; Wt 57.8 kg
[2024-01-16] MEDS: predniSONE 20 MG TAB PO ONE (18:53)
[2024-01-16 19:42] VITALS: BP 101/58; TEMP 98.8; O2SAT 100
== END 2024-01-16 19:44 | disposition home or self-care (01) ==
LOC: M ED 18:02
DX: J02.9 Acute pharyngitis, unspecified (principal)
CPT/HCPCS: 99283; J7512

== ENCOUNTER → 2024-01-30 | Outpatient (CLI) | payer OTHER ==
[~2024-01-30] MED LIST changes: +ALBUTEROL SULFATE 2.5MG/0.5ML INH NEB SOLN INH PRN; +EPINEPHrine INJ 1 MG/ML 1ML AMP IM PRN; +NS 1,000 ML IV SCH; +VANC125C3 PO; +diphenhydrAMINE 50MG/ML VIAL IV PRN; +methylPREDNISolone 125MG 2ML VIAL IV PRN
[2024-01-30 15:22] VITALS: BP 118/57; TEMP 97.1; O2SAT 99
[2024-01-30] MEDS: VEDOLIZUMAB 300 MG in NS 250 ML IV ONE (16:15)
[2024-01-30 16:53] VITALS: BP 88/54; O2SAT 100
== END ==
LOC: M INFU 15:14
PROVIDERS: ATTEND Internal Medicine Gastroenterology
DX: K50.90 Crohn's disease, unspecified, without complications (principal); Z91.011 Allergy to milk products
CPT/HCPCS: 96365; J3380

== ENCOUNTER 2024-03-26 15:30 | Outpatient (CLI) | payer OTHER ==
[~2024-03-26] VITALS: Ht 167.6 cm; Wt 55.9 kg
[2024-03-26 15:30] VITALS: BP 96/57; TEMP 97; O2SAT 100
[~2024-03-26 15:30] MED LIST changes: +ACET1TAB55 PO; +BUDE3CAP5 PO; +CIPR250T3 PO; +PERCOCET PO; +PROB250C PO
[2024-03-26] MEDS: VEDOLIZUMAB 300 MG in NS 250 ML IV ONE (16:01)
[2024-03-26 16:42] VITALS: BP 107/55; O2SAT 100
== END 2024-03-26 16:45 ==
LOC: M INFU 15:30
PROVIDERS: ATTEND Internal Medicine Gastroenterology
DX: K50.90 Crohn's disease, unspecified, without complications (principal)
CPT/HCPCS: 96365; J3380

== ENCOUNTER 2024-04-21 13:04 | Emergency (ER) | payer OTHER ==
[~2024-04-21] VITALS: Ht 167.6 cm; Wt 59.1 kg
[~2024-04-21 13:04] MED LIST changes: -ALBUTEROL SULFATE 2.5MG/0.5ML INH NEB SOLN INH PRN; -EPINEPHrine INJ 1 MG/ML 1ML AMP IM PRN; -NS 1,000 ML IV SCH; -diphenhydrAMINE 50MG/ML VIAL IV PRN; -methylPREDNISolone 125MG 2ML VIAL IV PRN
[2024-04-21] MEDS ORDERED: MIRA3350 (13:13)
[2024-04-21] MEDS ORDERED: DICY20TA20 (13:13)
[2024-04-21] MEDS: NS 1,000 ML IV ONE (14:34)
[2024-04-21] MEDS: ACETAMINOPHEN *IV* 1,000 MG in IV 1 EA IV ONE (14:35)
[2024-04-21] MEDS: GASTROGRAFIN SOLUTION 30ML PO SCH (14:35)
[2024-04-21] MEDS: ONDANSETRON 4MG 2ML VIAL IV ONE (14:35)
[2024-04-21 14:42] LABS: BASO # 0.1 10^3/uL (0.0-0.2); BASO % 0.7 % (0.0-1.0); EOS # 0.1 10^3/uL (0.0-0.5); EOS % 0.9 % (0.0-3.0); HEMATOCRIT 39.1 % (36.0-47.0); HEMOGLOBIN 12.1 g/dl (12.0-15.5); LYMPH # 2.3 10^3/uL (1.5-5.0); LYMPH % 26.3 % (24.0-44.0); MEAN CORPUSCULAR HEMOGLOBIN 25.4 pg (27.0-33.0); MEAN CORPUSCULAR HGB CONC 30.9 g/dl (32.0-36.5); MONO % 10.7 % (2.0-8.0); NEUTROPHILS # 5.4 10^3/uL (1.5-8.5); NEUTROPHILS % 60.8 % (36.0-66.0); PLATELET COUNT, AUTOMATED 315 10^3/uL (150-450); RED BLOOD COUNT 4.77 10^6/uL (4.00-5.40); WHITE BLOOD COUNT 8.9 10^3/uL (4.0-10.0)
[2024-04-21 15:00] LABS: LIPASE 43 U/L (12-53)
[2024-04-21 15:01] LABS: ALBUMIN 3.7 G/DL (3.2-5.2); ALKALINE PHOSPHATASE 91 U/L (46-116); ALT/SGPT 27 U/L (7.0-40); AST/SGOT 10 U/L (<34); BILIRUBIN,DIRECT < 0.1 MG/DL (<0.4); BILIRUBIN,TOTAL 0.3 MG/DL (0.3-1.2); BLOOD UREA NITROGEN 8 MG/DL (9-23); CALCIUM LEVEL 9.4 MG/DL (8.5-10.1); CARBON DIOXIDE LEVEL 29 MMOL/L (20-31); CHLORIDE LEVEL 105 MMOL/L (98-107); CREATININE FOR GFR 0.59 MG/DL (0.55-1.30); GLOMERULAR FILTRATION RATE > 60.0 (>60); GLUCOSE, FASTING 78 MG/DL (60-100); POTASSIUM SERUM 4.1 MMOL/L (3.5-5.1); SODIUM LEVEL 138 MMOL/L (136-145); TOTAL PROTEIN 7.2 G/DL (5.7-8.2)
[2024-04-21] MEDS ORDERED: ISOVUE-370 76% 100ML VIAL As Ordered ONE (16:08)
[2024-04-21] MEDS ORDERED: METR-265 PO (17:18)
[2024-04-21] MEDS ORDERED: PRED20TA PO (17:18)
[2024-04-21] MEDS ORDERED: CIPR-249 PO (17:18)
[2024-04-21 17:21] VITALS: BP 93/50; TEMP 98; O2SAT 98
== END 2024-04-21 17:26 | disposition home or self-care (01) ==
LOC: M ED 13:04
DX: K50.10 Crohn's disease of large intestine without complications (principal); D64.9 Anemia, unspecified; Z86.19 Personal history of other infectious and parasitic diseases; E73.9 Lactose intolerance, unspecified
CPT/HCPCS: 74177; 80048; 80076; 83605; 83690; 85025; 86140; 96365; 96366; 96375; 99284; J0131; J2405; Q9963; Q9967

== ENCOUNTER 2024-07-15 15:25 | Outpatient (CLI) | payer OTHER ==
[~2024-07-15] VITALS: Ht 167.6 cm; Wt 56.8 kg
[~2024-07-15 15:25] MED LIST changes: +ALBUTEROL SULFATE 2.5MG/0.5ML INH NEB SOLN INH PRN; +CIPR-249 PO; +DICY20TA20; +EPINEPHrine INJ 1 MG/ML 1ML AMP IM PRN; +MIRA3350; +NS 1,000 ML IV SCH; +PRED20TA PO; +diphenhydrAMINE 50MG/ML VIAL IV PRN; +methylPREDNISolone 125MG 2ML VIAL IV PRN
[2024-07-15 15:35] VITALS: BP 102/60; O2SAT 100
[2024-07-15] MEDS: VEDOLIZUMAB 300 MG in NS 250 ML IV ONE (16:07)
[2024-07-15 16:35] VITALS: BP 99/59; O2SAT 100
== END 2024-07-15 16:40 | disposition home or self-care (01) ==
LOC: M INFU 15:25
PROVIDERS: ATTEND Internal Medicine Gastroenterology
DX: K50.90 Crohn's disease, unspecified, without complications (principal); Z91.011 Allergy to milk products
CPT/HCPCS: 96365; J3380

== ENCOUNTER 2024-08-03 19:27 | Inpatient (IN) | payer OTHER ==
[~2024-08-03] VITALS: Ht 167.6 cm; Wt 57.0 kg
[~2024-08-03 19:27] MED LIST changes: -ALBUTEROL SULFATE 2.5MG/0.5ML INH NEB SOLN INH PRN; -EPINEPHrine INJ 1 MG/ML 1ML AMP IM PRN; -NS 1,000 ML IV SCH; -diphenhydrAMINE 50MG/ML VIAL IV PRN; -methylPREDNISolone 125MG 2ML VIAL IV PRN
[2024-08-03 20:27] LABS: HEMOGLOBIN 12.1 g/dl (12.0-15.5); MEAN CORPUSCULAR HEMOGLOBIN 27.1 pg (27.0-33.0); MEAN CORPUSCULAR HGB CONC 31.8 g/dl (32.0-36.5); MEAN CORPUSCULAR VOLUME 85.2 fl (80.0-96.0); PLATELET COUNT, AUTOMATED 296 10^3/uL (150-450); RED BLOOD COUNT 4.46 10^6/uL (4.00-5.40); WHITE BLOOD COUNT 9.9 10^3/uL (4.0-10.0)
[2024-08-03 20:51] LABS: AMPHETAMINES LEVEL URINE NEGATIVE (NEGATIVE); BARBITURATES URINE NEGATIVE (NEGATIVE); BENZODIAZEPINES URINE NEGATIVE (NEGATIVE); CANNABINOIDS URINE NEGATIVE (NEGATIVE); COCAINE METABOLITE URINE NEGATIVE (NEGATIVE); METHADONE URINE NEGATIVE (NEGATIVE); OPIATES URINE NEGATIVE (NEGATIVE); PHENCYCLIDINE URINE NEGATIVE (NEGATIVE)
[2024-08-03 20:55] LABS: ALBUMIN 3.9 G/DL (3.2-5.2); ALKALINE PHOSPHATASE 111 U/L (46-116); ALT/SGPT 30 U/L (7.0-40); AST/SGOT 11 U/L (<34); BILIRUBIN,DIRECT 0.1 MG/DL (<0.4); BILIRUBIN,TOTAL 0.4 MG/DL (0.3-1.2); BLOOD UREA NITROGEN 8 MG/DL (9-23); CALCIUM LEVEL 9.4 MG/DL (8.5-10.1); CARBON DIOXIDE LEVEL 25 MMOL/L (20-31); CHLORIDE LEVEL 106 MMOL/L (98-107); GLOMERULAR FILTRATION RATE > 60.0 (>60); GLUCOSE, FASTING 127 MG/DL (60-100); POTASSIUM SERUM 3.5 MMOL/L (3.5-5.1); SALICYLATE LEVEL < 3.0 MG/DL (<30); SODIUM LEVEL 139 MMOL/L (136-145); TOTAL PROTEIN 7.6 G/DL (5.7-8.2)
[2024-08-03 21:08] LABS: HCG, SERUM QUALITATIVE NEGATIVE (NEGATIVE)
[2024-08-03] MEDS ORDERED: ACET-683 PO (22:14)
[2024-08-03] MEDS ORDERED: HOME MED LIST COMPLETE! XX SCH (22:15)
[2024-08-03] MEDS ORDERED: ACETAMINOPHEN TAB 650MG DOSE (2X325MG) PO PRN (22:25)
[2024-08-03] MEDS ORDERED: IBUPROFEN 400MG TAB PO PRN (22:25)
[2024-08-03] MEDS ORDERED: MOM 30ML SUSPENSION UDC PO PRN (22:25)
[2024-08-03] MEDS ORDERED: traZODone 50 MG TAB PO PRN (22:25)
[2024-08-04 00:18] VITALS: BP 108/72; TEMP 97.2; O2SAT 100
[2024-08-04 06:39] VITALS: BP 108/59; TEMP 97.8; O2SAT 97
[2024-08-04] MEDS: ACETAMINOPHEN 325 MG TAB PO PRN (09:15)
[2024-08-04] MEDS: SERTRALINE HCL 50 MG TAB PO SCH (11:49)
[2024-08-04 15:17] VITALS: BP 120/63; TEMP 98.3; O2SAT 98
[2024-08-04] MEDS: FLUZONE VACCINE TRIVALENT PF(2024-25) 0.5ML SYRINGE IM.IMMUN ONE (16:00)
[2024-08-04] MEDS: ONDANSETRON 4MG ORAL DISINTEGRATING TAB PO PRN (17:51)
[2024-08-04] MEDS: diphenhydrAMINE 25MG CAP PO PRN (21:01)
[2024-08-05 07:00] VITALS: BP 120/60; TEMP 98; O2SAT 100
[2024-08-05 14:40] VITALS: BP 110/62; TEMP 98; O2SAT 99
[2024-08-05] MEDS: GABAPENTIN 100 MG CAP PO PRN (21:03)
[2024-08-06 06:14] VITALS: BP 105/60; TEMP 97.5; O2SAT 98
[2024-08-06] MEDS: MAALOX 30 ML SUSP *UDC PO PRN (09:07)
[2024-08-06] MEDS ORDERED: SERT50TA29 PO (10:04)
== END 2024-08-06 12:27 | disposition home or self-care (01) | DRG 885 ==
LOC: M ED 19:27 → M ED INP 22:24 → M PSY 23:36
PROVIDERS: ADMIT Psychiatry & Neurology Psychiatry; ATTEND Psychiatry & Neurology Psychiatry
DX: F32.1 Major depressive disorder, single episode, moderate (principal); R45.851 Suicidal ideations; K50.90 Crohn's disease, unspecified, without complications; Z63.0 Problems in relationship with spouse or partner; Z90.49 Acquired absence of other specified parts of digestive tract; Z79.899 Other long term (current) drug therapy; Z91.011 Allergy to milk products

== ENCOUNTER → 2024-09-09 | Outpatient (CLI) | payer OTHER ==
[~2024-09-09] VITALS: Ht 167.6 cm; Wt 54.5 kg
[~2024-09-09] MED LIST changes: +ACET-683 PO; +ALBUTEROL SULFATE 2.5MG/0.5ML INH NEB SOLN INH PRN; +EPINEPHrine INJ 1 MG/ML 1ML AMP IM PRN; +FERR32TA PO; +FLUV50TA PO; +GABA-1171 PO; +HYDR-3363 PO; +NS 1,000 ML IV SCH; +SERT50TA29 PO; +VITA-183 PO; +diphenhydrAMINE 50MG/ML VIAL IV PRN; +methylPREDNISolone 125MG 2ML VIAL IV PRN
[2024-09-09 15:15] VITALS: BP 117/62; O2SAT 100
[2024-09-09] MEDS: VEDOLIZUMAB 300 MG in NS 250 ML IV ONE (15:44)
[2024-09-09 16:20] VITALS: BP 104/60; O2SAT 100
== END ==
LOC: M INFU 15:13
PROVIDERS: ATTEND Internal Medicine Gastroenterology
DX: K50.90 Crohn's disease, unspecified, without complications (principal)
CPT/HCPCS: 96413; J3380

== ENCOUNTER 2024-09-11 12:02 | Inpatient (IN) | payer OTHER ==
[~2024-09-11] VITALS: Ht 162.6 cm; Wt 52.0 kg
[~2024-09-11 12:02] MED LIST changes: -ALBUTEROL SULFATE 2.5MG/0.5ML INH NEB SOLN INH PRN; -EPINEPHrine INJ 1 MG/ML 1ML AMP IM PRN; -FERR32TA PO; -FLUV50TA PO; -GABA-1171 PO; -HYDR-3363 PO; -NS 1,000 ML IV SCH; -VITA-183 PO; -diphenhydrAMINE 50MG/ML VIAL IV PRN; -methylPREDNISolone 125MG 2ML VIAL IV PRN
[2024-09-11 12:53] LABS: HEMATOCRIT 38.3 % (36.0-47.0); HEMOGLOBIN 12.3 g/dl (12.0-15.5); MEAN CORPUSCULAR HEMOGLOBIN 26.5 pg (27.0-33.0); MEAN CORPUSCULAR HGB CONC 32.1 g/dl (32.0-36.5); MEAN CORPUSCULAR VOLUME 82.5 fl (80.0-96.0); PLATELET COUNT, AUTOMATED 252 10^3/uL (150-450); RED BLOOD COUNT 4.64 10^6/uL (4.00-5.40); WHITE BLOOD COUNT 9.1 10^3/uL (4.0-10.0)
[2024-09-11] MEDS: LIDOCAINE 1% MDV 20ML VIAL SC ONE (13:01)
[2024-09-11] MEDS: BOOSTRIX VACCINE (TETANUS/DIPHTH/ACEL. PERTUSSIS) 0.5ML SYR IM.IMMUN ONE (13:04)
[2024-09-11 13:23] LABS: AMPHETAMINES LEVEL URINE NEGATIVE (NEGATIVE); BARBITURATES URINE NEGATIVE (NEGATIVE); BENZODIAZEPINES URINE NEGATIVE (NEGATIVE); COCAINE METABOLITE URINE NEGATIVE (NEGATIVE); METHADONE URINE NEGATIVE (NEGATIVE); OPIATES URINE NEGATIVE (NEGATIVE); PHENCYCLIDINE URINE NEGATIVE (NEGATIVE)
[2024-09-11 13:25] LABS: ETHYL ALCOHOL (ETHANOL) 0.003 % (0.000-0.010)
[2024-09-11 13:27] LABS: ALBUMIN 3.8 G/DL (3.2-5.2); ALKALINE PHOSPHATASE 87 U/L (35-104); ALT/SGPT 42 U/L (7.0-40); AST/SGOT 46 U/L (<34); BILIRUBIN,DIRECT 0.2 MG/DL (<0.4); BILIRUBIN,TOTAL 0.5 MG/DL (0.3-1.2); BLOOD UREA NITROGEN 12 MG/DL (9-23); CALCIUM LEVEL 9.3 MG/DL (8.5-10.1); CARBON DIOXIDE LEVEL 24 MMOL/L (20-31); CHLORIDE LEVEL 109 MMOL/L (98-107); CREATININE FOR GFR 0.63 MG/DL (0.55-1.30); GLOMERULAR FILTRATION RATE > 60.0 (>60); GLUCOSE, FASTING 86 MG/DL (60-100); HCG, SERUM QUALITATIVE NEGATIVE (NEGATIVE); POTASSIUM SERUM 3.9 MMOL/L (3.5-5.1); SALICYLATE LEVEL < 3.0 MG/DL (<30); SODIUM LEVEL 141 MMOL/L (136-145); TOTAL PROTEIN 7.1 G/DL (5.7-8.2)
[2024-09-11 13:28] LABS: CANNABINOIDS URINE POSITIVE (NEGATIVE)
[2024-09-11 13:30] LABS: THYROID STIMULATING HORMONE 1.561 uIU/ML (0.55-4.78)
[2024-09-11] MEDS: ACETAMINOPHEN 325 MG TAB PO ONE (13:55)
[2024-09-11] MEDS ORDERED: HYDR-3363 PO (16:30)
[2024-09-11] MEDS ORDERED: VITA-183 PO (16:30)
[2024-09-11] MEDS ORDERED: FLUV50TA PO (16:30)
[2024-09-11] MEDS ORDERED: GABA-1171 PO (16:30)
[2024-09-11] MEDS ORDERED: FERR32TA PO (16:30)
[2024-09-11] MEDS ORDERED: HOME MED LIST COMPLETE! XX SCH (16:30)
[2024-09-11] MEDS ORDERED: MOM 30ML SUSPENSION UDC PO PRN (17:45)
[2024-09-11] MEDS ORDERED: IBUPROFEN 400MG TAB PO PRN (17:45)
[2024-09-11] MEDS ORDERED: MAALOX 30 ML SUSP *UDC PO PRN (17:45)
[2024-09-11 19:16] VITALS: BP 118/65; TEMP 98.6; O2SAT 98
[2024-09-11] MEDS: traZODone 50 MG TAB PO PRN (20:47)
[2024-09-11] MEDS: ACETAMINOPHEN 325 MG TAB PO PRN (20:47)
[2024-09-11] MEDS: diphenhydrAMINE 25MG CAP PO PRN (20:47)
[2024-09-12 03:25] VITALS: BP 101/63; TEMP 97.7; O2SAT 99
[2024-09-12 06:30] VITALS: BP 104/50; TEMP 98; O2SAT 98
[2024-09-12] MEDS: FERROUS GLUCONATE 324 MG TAB PO SCH (09:28)
[2024-09-12] MEDS: fluvoxaMINE MALEATE 50 MG TAB PO SCH (09:28)
[2024-09-12] MEDS: GABAPENTIN 100 MG CAP PO SCH (20:46)
[2024-09-13 06:16] VITALS: BP 112/62; TEMP 98.6; O2SAT 98
[2024-09-14 06:42] VITALS: BP 111/65; TEMP 97.8; O2SAT 98
[2024-09-14 15:01] VITALS: BP 114/70; TEMP 98.4; O2SAT 98
[2024-09-14] MEDS: ACETAMINOPHEN 500 MG TAB PO PRN (20:08)
== END 2024-09-15 11:30 | disposition home or self-care (01) | DRG 885 ==
LOC: M ED 12:02 → EDBD 12:02 → M ED INP 17:42 → M PSY 19:37
PROVIDERS: ADMIT Psychiatry & Neurology Neurology; ATTEND Psychiatry & Neurology Psychiatry
DX: F32.1 Major depressive disorder, single episode, moderate (principal); R45.851 Suicidal ideations; A04.72 Enterocolitis due to Clostridium difficile, not specified as recurrent; Z91.52 Personal history of nonsuicidal self-harm; Z63.0 Problems in relationship with spouse or partner; Z79.899 Other long term (current) drug therapy; Z91.011 Allergy to milk products; F43.10 Post-traumatic stress disorder, unspecified; F41.9 Anxiety disorder, unspecified; Z90.49 Acquired absence of other specified parts of digestive tract

== ENCOUNTER 2024-09-27 11:47 | Emergency (ER) | payer OTHER ==
[~2024-09-27] VITALS: Ht 167.6 cm; Wt 55.5 kg
[~2024-09-27 11:47] MED LIST changes: +FERR32TA PO; +FLUV50TA PO; +GABA-1171 PO; +HYDR-3363 PO; +VITA-183 PO
[2024-09-27] MEDS: IBUPROFEN 600MG TAB PO ONE (12:05)
[2024-09-27] MEDS: NS 500 ML IV ONE (12:10)
[2024-09-27] MEDS ORDERED: ONDANSETRON 4MG 2ML VIAL As Ordered ONE (12:12)
[2024-09-27] MEDS: KETOROLAC 30 MG/ML 1ML VIAL IV ONE (12:24)
[2024-09-27 12:47] LABS: BASO % 0.3 % (0.0-1.0); EOS % 0.2 % (0.0-3.0); HEMATOCRIT 41.9 % (36.0-47.0); HEMOGLOBIN 13.6 g/dl (12.0-15.5); LYMPH # 0.5 10^3/uL (1.5-5.0); LYMPH % 4.7 % (24.0-44.0); MEAN CORPUSCULAR HEMOGLOBIN 26.9 pg (27.0-33.0); MEAN CORPUSCULAR HGB CONC 32.5 g/dl (32.0-36.5); MEAN CORPUSCULAR VOLUME 82.8 fl (80.0-96.0); MONO # 0.7 10^3/uL (0.0-0.8); NEUTROPHILS # 8.4 10^3/uL (1.5-8.5); NEUTROPHILS % 87.5 % (36.0-66.0); PLATELET COUNT, AUTOMATED 184 10^3/uL (150-450); RED BLOOD COUNT 5.06 10^6/uL (4.00-5.40); WHITE BLOOD COUNT 9.6 10^3/uL (4.0-10.0)
[2024-09-27 13:04] VITALS: BP 100/54; O2SAT 97
[2024-09-27 13:17] LABS: AMYLASE 120 U/L (30-118); C REACTIVE PROTEIN QUANTITATIV 5.54 MG/DL (<1.0)
[2024-09-27 13:29] LABS: PROCALCITONIN 0.16 ng/ml
[2024-09-27 13:35] LABS: HCG, SERUM QUALITATIVE NEGATIVE (NEGATIVE)
[2024-09-27 13:40] LABS: ALKALINE PHOSPHATASE 109 U/L (35-104); ALT/SGPT 115 U/L (7.0-40); AST/SGOT 148 U/L (<34); BILIRUBIN,DIRECT 0.4 MG/DL (<0.4); BILIRUBIN,TOTAL 1.1 MG/DL (0.3-1.2); BLOOD UREA NITROGEN 9 MG/DL (9-23); CALCIUM LEVEL 9.4 MG/DL (8.5-10.1); CARBON DIOXIDE LEVEL 22 MMOL/L (20-31); CHLORIDE LEVEL 102 MMOL/L (98-107); CREATININE FOR GFR 0.64 MG/DL (0.55-1.30); GLOMERULAR FILTRATION RATE > 60.0 (>60); GLUCOSE, FASTING 105 MG/DL (60-100); POTASSIUM SERUM 5.6 MMOL/L (3.5-5.1); SODIUM LEVEL 135 MMOL/L (136-145); TOTAL PROTEIN 8.3 G/DL (5.7-8.2)
[2024-09-27] MEDS: ONDANSETRON 4MG 2ML VIAL IV ONE (14:11)
[2024-09-27] MEDS: NS 1,000 ML IV ONE (14:11)
[2024-09-27] MEDS: ACETAMINOPHEN *IV* 1,000 MG in IV 1 EA IV ONE (14:11)
[2024-09-27 15:51] VITALS: TEMP 98.3
[2024-09-27] MEDS ORDERED: ONDA-282 PO (16:56)
== END 2024-09-27 17:40 | disposition home or self-care (01) ==
LOC: M ED 11:47 → EDBD 11:47 → M ED 17:40
DX: R11.2 Nausea with vomiting, unspecified (principal); B34.1 Enterovirus infection, unspecified; F32.9 Major depressive disorder, single episode, unspecified; K50.90 Crohn's disease, unspecified, without complications; E73.9 Lactose intolerance, unspecified; Z79.899 Other long term (current) drug therapy
CPT/HCPCS: 36415; 80048; 80076; 82150; 83605; 84145; 84703; 85025; 86140; 87040; 87486; 87581; 87633; 87798; 96361; 96374; 96375; 99284; J0131; J1885; J2405